=== PATIENT | male | born 1985 | race Asian ===

== ENCOUNTER 2019-09-29 15:30 | Emergency (ER) | payer OTHER ==
[~2019-09-29] VITALS: Ht 180.3 cm; Wt 91.8 kg
[2019-09-29 15:38] VITALS: BP 156/83; TEMP 102.2
== END 2019-09-29 17:35 | disposition home or self-care (01) ==
LOC: ED 15:30
DX: J10.1 Influenza due to other identified influenza virus with other respiratory manifestations (principal)
CPT/HCPCS: 87502; 87651; 99283

== ENCOUNTER 2019-11-10 20:31 | Emergency (ER) | payer OTHER ==
[~2019-11-10] VITALS: Ht 180.3 cm; Wt 96.6 kg
[2019-11-10 22:16] VITALS: BP 141/72; TEMP 100
== END 2019-11-10 22:16 | disposition home or self-care (01) ==
LOC: ED 20:31
DX: J02.0 Streptococcal pharyngitis (principal); F17.210 Nicotine dependence, cigarettes, uncomplicated
CPT/HCPCS: 87502; 87651; 99283; J1885

== ENCOUNTER 2020-04-05 11:16 | Emergency (ER) | payer OTHER ==
[~2020-04-05] VITALS: Ht 180.3 cm; Wt 96.6 kg
[2020-04-05 11:16] VITALS: TEMP 98.7
[2020-04-05 12:13] LABS: PLATELET COUNT 203 K/uL (142-355)
[2020-04-05 12:14] LABS: POTASSIUM 3.8 mmol/L (3.6-5.2)
[2020-04-05 14:00] VITALS: BP 115/77
== END 2020-04-05 14:05 | disposition home or self-care (01) ==
LOC: ED 11:16
PROVIDERS: Family Medicine
DX: J06.9 Acute upper respiratory infection, unspecified (principal); R05 Cough; Z20.828 Contact with and (suspected) exposure to other viral communicable diseases; F17.210 Nicotine dependence, cigarettes, uncomplicated
CPT/HCPCS: 80053; 85027; 87502; 87635; 87651; 99283; U0003

== ENCOUNTER 2020-07-01 13:38 | Emergency (ER) | payer OTHER ==
[~2020-07-01] VITALS: Ht 180.3 cm; Wt 96.2 kg
[2020-07-01 13:50] VITALS: TEMP 98.9
[2020-07-01 15:25] VITALS: BP 131/95
== END 2020-07-01 15:25 | disposition home or self-care (01) ==
LOC: ED 13:38
DX: R45.1 Restlessness and agitation (principal); G47.09 Other insomnia
CPT/HCPCS: 99282

== ENCOUNTER 2020-08-21 14:10 | Emergency (ER) | payer OTHER ==
[~2020-08-21] VITALS: Ht 180.3 cm; Wt 102.1 kg
[2020-08-21 15:00] LABS: PLATELET COUNT 211 K/uL (142-355)
[2020-08-21 15:21] LABS: POTASSIUM 4.7 mmol/L (3.6-5.2)
[2020-08-22 04:08] VITALS: BP 130/87; TEMP 97.9
[2020-08-22] MEDS ORDERED: MINIPRESS2 MG PO (18:50)
[2020-08-22] MEDS ORDERED: HALOPERIDOL0.5 MG PO (18:50)
[2020-08-22] MEDS ORDERED: BENZTROPINE2 MG PO (18:51)
[2020-08-22] MEDS ORDERED: DIVA500T2 PO (18:51)
[2020-08-22] MEDS ORDERED: ALLO100T22 PO (18:52)
== END 2020-08-22 04:33 | disposition still patient (30) ==
LOC: ED 14:10
PROVIDERS: Hospitalist
DX: F20.89 Other schizophrenia (principal); F31.89 Other bipolar disorder; Z11.59 Encounter for screening for other viral diseases; Z13.39 Encounter for screening examination for other mental health and behavioral disorders; R46.89 Other symptoms and signs involving appearance and behavior
CPT/HCPCS: 36415; 80053; 80307; 80320; 80329; 81000; 85027; 87635; 96372; 99285; J1200; J3486; U0003

== ENCOUNTER 2020-08-22 06:48 | Emergency (ER) | payer OTHER ==
[~2020-08-22] VITALS: Ht 180.3 cm; Wt 102.1 kg
[2020-08-22] MEDS ORDERED: MINIPRESS2 MG PO (18:50)
[2020-08-22] MEDS ORDERED: HALOPERIDOL0.5 MG PO (18:50)
[2020-08-22] MEDS ORDERED: DIVA500T2 PO (18:51)
[2020-08-22] MEDS ORDERED: BENZTROPINE2 MG PO (18:51)
[2020-08-22] MEDS ORDERED: ALLO100T22 PO (18:52)
[2020-08-22 22:15] VITALS: BP 136/84; TEMP 98.4
== END 2020-08-22 23:05 | disposition still patient (30) ==
LOC: ED 06:48
DX: F20.89 Other schizophrenia (principal); F31.89 Other bipolar disorder; R46.89 Other symptoms and signs involving appearance and behavior
CPT/HCPCS: 96372; 99285; J1200; J3486

== ENCOUNTER 2021-09-12 21:01 | Emergency (ER) | payer OTHER ==
[~2021-09-12] VITALS: Ht 180.3 cm; Wt 97.5 kg
[~2021-09-12 21:01] MED LIST: ALLO100T22 PO; BENZTROPINE2 MG PO; DIVA500T2 PO; HALOPERIDOL0.5 MG PO; MINIPRESS2 MG PO
[2021-09-12 21:15] LABS: PLATELET COUNT 211 K/uL (142-355)
[2021-09-12 21:20] LABS: POTASSIUM 3.6 mmol/L (3.6-5.2)
[2021-09-12 22:15] VITALS: BP 134/82; TEMP 98.4
== END 2021-09-12 22:15 | disposition home or self-care (01) ==
LOC: ED 21:01
PROVIDERS: Hospitalist
DX: R07.89 Other chest pain (principal); J40 Bronchitis, not specified as acute or chronic; Z20.822 Contact with and (suspected) exposure to COVID-19; F17.210 Nicotine dependence, cigarettes, uncomplicated
CPT/HCPCS: 80053; 82550; 83880; 84484; 85027; 85379; 85610; 85730; 87502; 87635; 87651; 93005; 96372; 99283; J0696; U0003

== ENCOUNTER 2022-09-12 17:52 | Emergency (ER) | payer OTHER ==
[~2022-09-12] VITALS: Ht 180.3 cm; Wt 106.6 kg
[2022-09-12 17:55] VITALS: BP 118/77; TEMP 97
== END 2022-09-12 19:15 | disposition home or self-care (01) ==
LOC: ED 17:52
PROC: 2W3MX1Z Immobilization of Left Lower Extremity using Splint (ICD-10-PCS; principal; 2022-09-12)
DX: S80.02XA Contusion of left knee, initial encounter (principal); S86.812A Strain of other muscle(s) and tendon(s) at lower leg level, left leg, initial encounter; W10.8XXA Fall (on) (from) other stairs and steps, initial encounter; Y92.89 Other specified places as the place of occurrence of the external cause
CPT/HCPCS: 99283; J1885

== ENCOUNTER 2023-05-07 20:45 | Emergency (ER) | payer OTHER ==
[~2023-05-07] VITALS: Ht 180.3 cm; Wt 83.9 kg
[2023-05-07 20:52] VITALS: BP 132/90; TEMP 98
== END 2023-05-07 21:45 | disposition left against medical advice (07) ==
LOC: ED 20:45
DX: R10.9 Unspecified abdominal pain (principal); R11.0 Nausea; F17.210 Nicotine dependence, cigarettes, uncomplicated
CPT/HCPCS: 87502; 87635; 99281; U0003